=== PATIENT | male | born 1955 | race Caucasian/White ===

== ENCOUNTER 2017-01-24 09:35 | Emergency (ER) | payer OTHER ==
--- NOTE | 2017-01-24 09:45 | PDOC ---
History of Present Illness - General Chief Complaint: Abscess Boil Stated Complaint: ABSCESS LEFT AXILLA Time Seen by Provider: 01/24/17 09:40 History Source: Patient Exam Limitations: No Limitations - History of Present Illness Initial Comments: 01/24/17 09:40 61 yo male DM , HLD here wtih c/o left axillary abscess. saw pmd, was started on augmentin 2 - days ago. no relief. has had for 5 days. pain becoming worse and more swollen. no f/c no drainage. no n/v/d. sugars run high . no prior abscess. 01/24/17 09:46 Past History - Past Medical History Allergies/Adverse Reactions: Allergies Allergy/AdvReac Type Severity Reaction Status Date / Time No Known Allergies Allergy Verified 01/24/17 09:38 Home Medications: Ambulatory Orders Enalapril Maleate [Vasotec -] 20 mg PO DAILY 12/05/13 Glyburide 5 mg PO DAILY 12/05/13 Metformin HCl [Metformin HCl ER] 1,000 mg PO BID 12/05/13 Simvastatin [Zocor -] 5 mg PO HS 12/05/13 Ibuprofen [Motrin -] 600 mg PO TID PRN #60 tablet 01/24/17 Insulin Glargine,Hum.rec.anlog [Lantus Solostar PEN (NF)] 60 units SQ BID Sulfamethoxazole/Trimethoprim [Bactrim Ds Tablet] 1 each PO BID #14 tablet MDD 2 01/24/17 Dialysis: Yes HTN: Yes Hypercholesterolemia: Yes - Suicide/Smoking/Psychosocial Hx Smoking History: Never smoked Have you smoked in the past 12 months: No Hx Alcohol Use: No Substance Use Type: None *Physical Exam - Physical Exam General Appearance: Yes: Nourished Respiratory/Chest: positive: Lungs Clear, Normal Breath Sounds Cardiovascular: positive: Regular Rhythm, Regular Rate, S1, S2. negative: Edema Gastrointestinal/Abdominal: positive: Normal Bowel Sounds, Flat, Soft. negative : Tender Integumentary: positive: Normal Color, Dry, Warm, Other (left axilla fullness, induration erythema. ) Neurologic: positive: Fully Oriented, Alert, Normal Mood/Affect Procedures - Incision and Drainage I&D Site: Left: Axilla Betadine cleansed: Yes Anesthesia: 1% Lidocaine Volume(ml): 2 Blade Size: 11 Iodinated Packin/4 in Complications: none Dressing: Yes Medical Decision Making - Medical Decision Making 01/24/17 09:42 I & D abscess. pt should switched from augmentin to mrsa coverage with bactrim DS bid. prescription given. return 48 hours for wound check and packing removal. tolerated well. *DC/Admit/Observation/Transfer Diagnosis at time of Disposition: Abscess - Discharge Dispostion Condition at time of disposition: Stable - Prescriptions Prescriptions: Sulfamethoxazole/Trimethoprim [Bactrim Ds Tablet] 1 each PO BID #14 tablet MDD 2 Ibuprofen [Motrin -] 600 mg PO TID PRN #60 tablet PRN Reason: Pain - Referrals Referrals: Yahaira Chávez [Primary Care Provider] - - Patient Instructions Printed Discharge Instructions: DI for Incision and Drainage of a Skin Abscess Additional Instructions: keep dressing and packing in place. return to ED in 48 hours for wound evaluation. take ibuprofen 400 mg every 8 hrs as needed for pain. stop augmentin. you should start bactrim twice daily x 7 days. after packing removal. will need to wash area mild soap and water twice daily. follow up with your regular doctor.
[2017-01-24 09:53] VITALS: BP 154/97; PULSE 93; TEMP 98.6; BMI 38.2
[2017-01-24] MEDS ORDERED: IBUPROFEN 400 MG TABLET (FP) PO ONE ×2 (10:15→10:16)
== END 2017-01-24 10:29 | disposition home or self-care (01) ==
LOC: FER 09:35
PROC: 0H9CXZZ Drainage of Left Upper Arm Skin, External Approach (ICD-10-PCS; principal; 2017-01-24)
DX: L02.412 Cutaneous abscess of left axilla (principal)
CPT/HCPCS: 10060; 87070; 87186; 87205; 99283-25

== ENCOUNTER 2017-01-26 13:47 | Emergency (ER) | payer OTHER ==
[2017-01-26 13:52] VITALS: BP 157/87; PULSE 98; TEMP 98.1; BMI 37.5
--- NOTE | 2017-01-26 13:53 | PDOC ---
Suture Removal/Wound Check HPI - History of Present Illness Chief Complaint: Revisit,Wound Recheck Stated Complaint: LEFT AXILLA WOUND CHECK S/P I&D Time Seen by Provider: 01/26/17 13:51 History Source: Yes: Patient Exam Limitations: Yes: No Limitations Date of Last ED visit: 01/24/17 - Previous ED Treatment Type of procedure performed on last visit: Yes: I&D of Abscess - Onset of Previous Treatment Select one - (for the option above): Days (s s/p I & D abscess feels much improved. taking abx.) Past History - Past Medical History Allergies/Adverse Reactions: Allergies Allergy/AdvReac Type Severity Reaction Status Date / Time No Known Allergies Allergy Verified 01/26/17 13:48 Home Medications: Ambulatory Orders Enalapril Maleate [Vasotec -] 20 mg PO DAILY 12/05/13 Glyburide 5 mg PO DAILY 12/05/13 Metformin HCl [Metformin HCl ER] 1,000 mg PO BID 12/05/13 Simvastatin [Zocor -] 5 mg PO HS 12/05/13 Ibuprofen [Motrin -] 600 mg PO TID PRN #60 tablet 01/24/17 Insulin Glargine,Hum.rec.anlog [Lantus Solostar PEN (NF)] 60 units SQ BID Sulfamethoxazole/Trimethoprim [Bactrim Ds Tablet] 1 each PO BID #14 tablet MDD 2 01/24/17 Diabetes: Yes Dialysis: Yes HTN: Yes Hypercholesterolemia: Yes - Suicide/Smoking/Psychosocial Hx Smoking History: Never smoked Have you smoked in the past 12 months: No Information on smoking cessation initiated: No Hx Alcohol Use: No Drug/Substance Use Hx: No Substance Use Type: None Medical Decision Making - Medical Decision Making 01/26/17 14:00 on exam wound clean dry. min erythema. no expressable discharge. dressing placed. packing removed. dc home. *DC/Admit/Observation/Transfer Diagnosis at time of Disposition: Abscess, Wound check, abscess - Discharge Dispostion Disposition: HOME Condition at time of disposition: Improved Admit: No - Patient Instructions Printed Discharge Instructions: DI for Incision and Drainage of a Skin Abscess Additional Instructions: continue to soak or wash area with mild soap and water x 7 week t wice daily. continue taking antiobiotics. follow up with your primary doctor.
== END 2017-01-26 14:05 | disposition home or self-care (01) ==
LOC: FER 13:47
DX: Z48.02 Encounter for removal of sutures (principal)
CPT/HCPCS: 99282-25

== ENCOUNTER 2017-01-29 17:45 | Emergency (ER) | payer OTHER ==
--- NOTE | 2017-01-29 17:55 | PDOC ---
History of Present Illness - General Chief Complaint: Injury Stated Complaint: LEFT FOOT PAIN Time Seen by Provider: 01/29/17 17:48 History Source: Patient Exam Limitations: No Limitations - History of Present Illness Initial Comments: 01/29/17 17:52 61 y/o male stepped off incorrectly, injuring left heel. Pt states hurts to walk on it. Has multiple screws in left foot, 6 in the metatarsal and 2 in the heel. One of the screws in the heel broke while he was in a boot. No other complaint at this time. Has not iced it or taken anything. Patient had surgery done at [facility]. Method of Injury: Yes: fell Modifying Factors: improves with: None Past History - Past Medical History Allergies/Adverse Reactions: Allergies Allergy/AdvReac Type Severity Reaction Status Date / Time No Known Allergies Allergy Verified 01/29/17 17:57 Home Medications: Ambulatory Orders Enalapril Maleate [Vasotec -] 20 mg PO DAILY 12/05/13 Glyburide 5 mg PO DAILY 12/05/13 Metformin HCl [Metformin HCl ER] 1,000 mg PO BID 12/05/13 Simvastatin [Zocor -] 5 mg PO HS 12/05/13 Ibuprofen [Motrin -] 600 mg PO TID PRN #60 tablet 01/24/17 Insulin Glargine,Hum.rec.anlog [Lantus Solostar PEN (NF)] 60 units SQ BID Sulfamethoxazole/Trimethoprim [Bactrim Ds Tablet] 1 each PO BID #14 tablet MDD 2 01/24/17 Diabetes: Yes Dialysis: Yes HTN: Yes Hypercholesterolemia: Yes - Suicide/Smoking/Psychosocial Hx Smoking History: Never smoked Have you smoked in the past 12 months: No 'Breaking Loose' booklet given: 01/26/17 Hx Alcohol Use: No Drug/Substance Use Hx: No Substance Use Type: None Review of Systems - Review of Systems Able to Perform ROS?: Yes Is the patient limited Guinean proficient: No Constitutional: No: Chills, Fever Respiratory: No: Shortness of Breath Cardiac (ROS): No: Chest Pain Musculoskeletal: Yes: Joint Pain. No: Back Pain Neurological: No: Headache All Other Systems: Reviewed and Negative *Physical Exam - Physical Exam General Appearance: Yes: Nourished, Appropriately Dressed. No: Apparent Distress Respiratory/Chest: positive: Lungs Clear, Normal Breath Sounds Cardiovascular: positive: Regular Rhythm, Regular Rate, S1, S2 Vascular Pulses: Femoral (R): 4+, Femoral (L): 4+, Carotid (R): 4+, Carotid (L) : 4+, Dorsalis-Pedis (R): 4+, Doralis-Pedis (L): 4+ Lymphatic: negative: Adenopathy, Tenderness, Other Musculoskeletal: positive: Normal Inspection. negative: CVA Tenderness Extremity: positive: Normal Capillary Refill, Normal Range of Motion, Tender. negative: Normal Inspection (swelling to left foot/heel, no redness or ecchymosis noted, full ROM, pulses 2+/4 b/l in LE, mild tenderness to heel, no tenderness to lateral foot) Integumentary: positive: Normal Color, Dry, Warm. negative: Erythema, Ecchymosis Neurologic: positive: mold finisher II-XII NML intact, Fully Oriented, Alert, Normal Mood/ Affect, Normal Response, Motor Strength / ED Treatment Course - RADIOLOGY Radiology Studies Ordered: 01/29/17 18:24 Old chronic left heel fracture with broken screw - compared to patients x-ray one week ago from phone no change seen Progress Note - Progress Note Progress Note: Left heel pain, will x-ray to r/o fracture No change in x-ray from patient's phone x-ray 1 week ago Ice, Motrin, boot Pt does not want to use crutches Non weight bearing Follow up with your Orthopedics If worsen return to ER *DC/Admit/Observation/Transfer Diagnosis at time of Disposition: Fracture, foot Qualifiers: Encounter type: sequela Fracture type: closed Laterality: left Qualified Code(s ): S92.902S - Unspecified fracture of left foot, sequela; S92.902S - Unspecified fracture of left foot, sequela Contusion of left heel Qualifiers: Encounter type: initial encounter Qualified Code(s): S90.32XA - Contusion of left foot, initial encounter; S90.32XA - Contusion of left foot, initial encounter - Discharge Dispostion Disposition: HOME Condition at time of disposition: Good Admit: No - Patient Instructions Printed Discharge Instructions: DI for Foot Fracture Additional Instructions: Appears to have unchanged heel fracture Ice, Motrin, rest, elevate Use boot, non weight bearing Follow up with your Orthopedist If worsen return to ER
[2017-01-29 18:09] VITALS: BP 142/76; PULSE 96; TEMP 98.6; BMI 40.1
== END 2017-01-29 18:39 | disposition home or self-care (01) ==
LOC: FER 17:45
DX: S92.902A Unspecified fracture of left foot, initial encounter for closed fracture (principal); S90.32XA Contusion of left foot, initial encounter; E11.9 Type 2 diabetes mellitus without complications; Z99.2 Dependence on renal dialysis; I10 Essential (primary) hypertension; E78.00 Pure hypercholesterolemia, unspecified; W01.0XXA Fall on same level from slipping, tripping and stumbling without subsequent striking against object, initial encounter; Y92.410 Unspecified street and highway as the place of occurrence of the external cause
CPT/HCPCS: 73630-TC-LT; 99281-25